=== PATIENT | female | born 1950 | race Caucasian/White ===

== ENCOUNTER 2019-04-02 16:44 | Emergency (ER) | payer MEDICARE, SELFPAY ==
[2019-04-02 16:45] VITALS: BP 145/85; PULSE 72; RESP 16; TEMP 36.7; O2SAT 98; BMI 28.8
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
[2019-04-02 17:53] VITALS: BP 141/73; PULSE 72; RESP 18
== END 2019-04-02 17:54 | disposition home or self-care (01) ==
LOC: ED 17:16
PROVIDERS: Emergency Provider Emergency Medicine; Family Provider Internal Medicine; PCP Internal Medicine
DX: S62.317A Displaced fracture of base of fifth metacarpal bone, left hand, initial encounter for closed fracture (principal); W22.8XXA Striking against or struck by other objects, initial encounter; Y93.89 Activity, other specified; Z87.891 Personal history of nicotine dependence
CPT/HCPCS: 29125; 73130; 99282

== ENCOUNTER → 2020-04-03 | Outpatient (CLI) | payer MEDICARE, SELFPAY ==
--- NOTE | 2020-04-03 | COLBX_PTH ---
PATIENT: HESHAM VILLANUEVA LOC: [facility] U#:[id number] AGE/SX: 69/F ROOM: RE04/03/[address]: Dr. Dalton Mason MD : 1950 BED: DIS: 04/03/2020 SPEC #: [id number] RECD: 04/03/20 15:03 STATUS: RENA RELuiz #: [id number] KIEL: 04/03/20 00:[address]: Dalton Mason DEPT: SURGICAL PATHOLOGY RECD BY: Serge Peterson ENTERED: 04/04/20 09:00 SP TYPE: COLON BX JOE DR: Dr. Lauren Corrales MD Tissues: COLON BIOPSY Procedures: Trichrome (control) Special Stain Group II Surgery Specimen Level IV HEADER OPERATION: Colonoscopy PRE-OP DIAGNOSIS: Z86.010, Z87.19 TISSUE SUBMITTED: Random colon biopsies MICROSCOPIC DIAGNOSIS Colon, random biopsy: Fragments of colonic mucosa, no pathologic diagnosis. See comment. SJ:francesca 04/07/20 COMMENT Trichrome stain with matched control is used in the evaluation and does not reveal any significant thickening of subepithelial collagen band. MICROSCOPIC DESCRIPTION Slides are reviewed. GROSS DESCRIPTION Received in fixative is one container labeled with the patient's name and designated random colon biopsy. The specimen consists of two irregular fragments of light juan soft tissue that in aggregate measure 1 x 0.5 x 0.1 cm. The specimen is totally submitted in one cassette. / AM:francesca 04/04/20 TC:4 CPT: 89357, 95152
== END | disposition home or self-care (01) ==
LOC: LABSPEC 15:31
PROVIDERS: PCP Internal Medicine; Referring Provider Surgery; Visit Provider Surgery
DX: Z86.010 Personal history of colon polyps (principal); Z87.19 Personal history of other diseases of the digestive system
CPT/HCPCS: 88305; 88313

== ENCOUNTER 2020-07-15 12:47 | Emergency (ER) | payer MEDICARE, SELFPAY ==
[2020-07-15] VITALS (8 sets, daily range): BP systolic 113–130; BP diastolic 56–76; PULSE 69–80; RESP 20–24; TEMP 36.4–39.2; O2SAT 95–99; BMI 30.1
--- NOTE | 2020-07-15 13:30 | RAD_ITS ---
STUDY: X-RAY CHEST REASON FOR EXAM: Female, 70 years old. SOB, COUGH TECHNIQUE: Single AP portable view of the chest. COMPARISON: None. FINDINGS: EKG electrodes are seen. Focal patchy infiltrates are seen in the mid and lower aspects of both lungs. There is no demonstrated pleural abnormality. Normal size heart. Normal mediastinum and cortez. Normal visualized pulmonary arteries. There is atherosclerotic calcification of the aortic arch with tortuosity. Normal visualized thoracic spine. Normal visualized ribs, clavicles, and shoulders. There is no demonstrated abnormality of the visualized soft tissue structures of the upper abdomen. RAD/Chest 1 View (Portable) IMPRESSION: Focal patchy infiltrates seen in the mid and lower aspects of both lungs. Electronically Signed: Kye Dobson, at 14:17 EST , Service support ,
--- NOTE | 2020-07-15 13:30 | EKG12_ITS ---
Test Reason : VOMMITING Blood Pressure : / mmHG Vent. Rate : 073 BPM Atrial Rate : 073 BPM P-R Int : 154 ms QRS Dur : 074 ms QT Int : 386 ms P-R-T Axes : 039 -02 065 degrees QTc Int : 425 ms Normal sinus rhythm Minimal voltage criteria for LVH, may be normal variant ST & T wave abnormality, consider anterior ischemia Abnormal ECG Confirmed by SHARI JAMISON, [place] ([id number]), script editor SOHAN BARLOW ([id number]) on 07/18/2020 8:53:48 A M Referred By: Micki Wilson Confirmed By:JENI MCCARTHY MD
[2020-07-15] MEDS: 0.9% Normal Saline 1,000 ML 999 ML IV (13:52)
[2020-07-15] MEDS: Acetaminophen 500 MG Tablet 1000 MG PO (13:52)
[2020-07-15 13:56] LABS: Absolute Lymphocyte Count 1.11 X10^3/uL (0.83-4.51); Absolute Neutrophil Count 7.7 X10^3/uL (2.0-7.7); Basophil# 0.01 X10^3/uL; Basophil% 0.1 % (0-1); Eosinophil# 0.01 X10^3/uL; Eosinophils% 0.1 % (0-5); Hematocrit 40.6 % (37-47); Hemoglobin 13.6 g/dL (12.0-15.0); Lymphocyte # 1.11 X10^3/ul (4.0); Lymphocyte % 11.6 % (19-41); Mean Corp Hgb Conc 33.5 g/dL (32-36); Mean Corpuscular Hgb 30.2 pg (27.0-32.0); Mean Platelet Vol. 12.2 fl (6.2-12.0); Monocyte# 0.64 X10^3/uL; Monocyte% 6.7 % (0-10); NRBC Flagged by Analyzer 0 % (0-5); Neutrophil # 7.73 X10^3/uL (2.7-7.7); Neutrophil % 80.9 % (47-70); Platelet Count 219 K/mm3 (150-450); RBC Distribution Width CV 13.3 % (11.6-14.6); RBC Distribution Width SD 43.8 fl (35.1-43.9); Red Blood Count 4.51 M/mm3 (4.2-5.4); White Blood Count 9.6 K/mm3 (4.4-11.0)
[2020-07-15 14:04] LABS: Partial Thromboplast Time 27.4 Seconds (24.1-36.2)
[2020-07-15 14:06] LABS: ALB/GLOB Ratio 0.7 RATIO (0.9-2.4); AST(SGOT) 21 U/L (15-37); Alanine Aminotransfer ALT/SGPT 19 U/L (13-56); Albumin, Serum 3.2 g/dL (3.2-5.0); Alkaline Phosphatase 135 U/L (45-117); Anion Gap 6 (5-15); BUN 14 mg/dL (7-18); Chloride 100 mmol/L (98-107); Creatinine, Serum 1.08 mg/dL (0.55-1.02); EST Glomerular Filtration Rate 53 mL/min (>60); Est Glom Filt Rate - Afr Amer 64 mL/min (>60); Estimated Creatinine Clearance 42.37 ml/min; Globulin 4.5 g/dL (2.2-4.2); Glucose 108 mg/dL (74-106); Potassium 3.2 mmol/L (3.5-5.1); Protein, Total 7.7 g/dL (6.4-8.2); Sodium Level 135 mmol/L (136-145)
[2020-07-15 14:23] LABS: Lactic Acid 2.2 mmol/L (0.4-1.9)
--- NOTE | 2020-07-15 14:23 | ED.RN ---
lactic 2.2 aware
--- NOTE | 2020-07-15 15:09 | ED.DCSUM_ITS ---
History of Present Illness Chief Complaint: Nausea/Vomiting/Diarrhea Narrative: Patient presenting for evaluation secondary to generalized illness. Patient states that over the course of about the last 5 days she has been dealing with nausea vomiting and diarrhea. It has been associated with mild cough and mild shortness of breath. Patient states that she has had multiple episodes of diarrhea per day, and around one episode of watery emesis per day. No blood in her vomit no blood in her stool. Patient does state that she has been dealing with mild shortness of breath, denies any history of heart disease smoking COPD or lung disease. She denies any sick contacts. Patient simply feels as if she is getting more dehydrated and having difficulty with getting around. Past Medical History - Allergies and Home Meds Allergies/Adverse Reactions: Allergies amoxicillin trihydrate [From Augmentin] Allergy (Verified 04/02/19 16:47) Rash potassium clavulanate [From Augmentin] Allergy (Verified 04/02/19 16:47) Rash codeine Adverse Reaction (Verified 04/02/19 16:47) Other propoxyphene HCl [From Darvon] Adverse Reaction (Verified 04/02/19 16:47) Other Primary Care Physician: Lauren Corrales MD [Primary Care Provider] - Prior records reviewed: Yes Past Medical History: - - Hypertension, hyperlipidemia Smoking Status: Never smoker Alcohol: None Drugs: None Review of Systems All systems negative except as indicated General: Reports: Fever Eyes: Denies: Visual changes - bilaterally, Diplopia ENT: Denies: Rhinorrhea, Sore throat Cardiovascular: Denies: Chest pain, Palpitations Respiratory: Reports: Dyspnea, Cough Gastrointestinal: Reports: Nausea, Vomiting, Diarrhea Genitourinary: Denies: Dysuria, Hematuria, Frequency Musculoskeletal: Denies: Back pain, Extremity Pain Skin: Denies: Rash, Wounds Neurological: Denies: Headache, Weakness, Numbness Physical Exam Vital Signs/Narrative: Vital Signs Temp Pulse Resp BP Pulse Ox 07/15/20 14:34 101.6 F H 07/15/20 14:33 101.2 F H 77 24 H 128/72 H 96 07/15/20 13:51 102.6 F H 75 21 H 113/66 96 07/15/20 12:48 98.3 F 75 20 H 122/69 H 99 Inital Vital Signs reviewed: Yes General: Well nourished, Well developed, No Acute Distress Head: Normocephalic, Atraumatic Eyes: Perrl, EOMI ENT: Moist mucous membranes, No rhinorrhea Neck: Supple, Nontender Cardiovascular: Regular rhythm, No murmurs, Tachycardia Respiratory: No distress, CTA bilaterally, Chest nontender Abdomen: Soft, Nontender, Nondistended, Normal bowel sounds Back: Nontender, Normal Inspection Extremities: Nontender, No edema Skin: Normal color, No rash, - - Skin is hot to the touch Neurological: Alert, Oriented x3, Cranial nerves II-XII grossly intact, Normal Strength, Normal Sensation Psychological: Normal affect, Normal Mood Diagnostic/Tx/Re-eval Clinical Impression(s) from Imaging Studies Chest X-Ray 07/15/20 13:30 IMPRESSION: Focal patchy infiltrates seen in the mid and lower aspects of both lungs. Electronically Signed: Kye Bronson, at 14:17 EST , Service support , Laboratory Data 07/15/20 07/15/20 07/15/20 13:21 13:21 13:21 WBC 9.6 RBC 4.51 Hgb 13.6 Hct 40.6 MCV 90.0 MCH 30.2 MCHC 33.5 RDW Std Deviation 43.8 RDW Coeff of Nii 13.3 Plt Count 219 MPV 12.2 H Immature Gran % (Auto) 0.600 Neut % (Auto) 80.9 H Lymph % (Auto) 11.6 L Hodgeman % (Auto) 6.7 Eos % (Auto) 0.1 Baso % (Auto) 0.1 Absolute Neuts (auto) 7.7 Absolute Lymphs (auto) 1.11 Nucleated RBC % 0 PT 13.0 INR 1.0 APTT 27.4 Sodium 135 L Potassium 3.2 L Chloride 100 Carbon Dioxide 29.0 Anion Gap 6 BUN 14 Creatinine 1.08 H Estim Creat Clear Calc 42.37 Est GFR (MDRD) Af Amer 64 Est GFR (MDRD) Non-Af 53 L BUN/Creatinine Ratio 13.0 Glucose 108 H Lactic Acid Calcium 9.0 Total Bilirubin 0.50 AST 21 ALT 19 Alkaline Phosphatase 135 H C-React Prot Ext Range 160.00 H Total Protein 7.7 Albumin 3.2 Globulin 4.5 H Albumin/Globulin Ratio 0.7 L 07/15/20 13:21 WBC RBC Hgb Hct MCV MCH MCHC RDW Std Deviation RDW Coeff of Nii Plt Count MPV Immature Gran % (Auto) Neut % (Auto) Lymph % (Auto) Hodgeman % (Auto) Eos % (Auto) Baso % (Auto) Absolute Neuts (auto) Absolute Lymphs (auto) Nucleated RBC % PT INR APTT Sodium Potassium Chloride Carbon Dioxide Anion Gap BUN Creatinine Estim Creat Clear Calc Est GFR (MDRD) Af Amer Est GFR (MDRD) Non-Af BUN/Creatinine Ratio Glucose Lactic Acid 2.2 H* Calcium Total Bilirubin AST ALT Alkaline Phosphatase C-React Prot Ext Range Total Protein Albumin Globulin Albumin/Globulin Ratio - Medical Decision Making Patient presented with nausea vomiting fever and a cough. There was concern for the possibility of coronavirus. Patient was given fluids as clinically she does appear dehydrated. Patient's lab work does show some lymphocyte suppression no leukocytosis. Chemistry did not demonstrate significant evidence of renal dysfunction, she did have some mild hypokalemia patient was replaced orally. Chest x-ray shows bilateral infiltrates by my personal review as well as radiology review. Patient's fever improved, heart rate improved. Patient had a ambulatory pulse ox performed, and does not have hypoxia. Patient's antigen testing was found to be negative, so a PCR test was sent on the patient to confirm her coronavirus status. Patient at this point does not have hypoxia, she only had mild hypokalemia, she does have some comorbid conditions but is not requiring oxygen and actually would meet criteria for monoclonal antibody infusions showed her PCR test come back positive. I did give the patient some additional fluids while in the emergency department. At this point I feel the patient either has gastroenteritis, and can be discharged or has coronavirus with 5 days of infection and can be discharged with outpatient treatment with monoclonal antibodies. Oncoming physician will follow up on the patient's coronavirus PCR test, and disposition the patient home with or without to the monoclonal antibody treatment. Patient will be sent home with Zofran to ensure hydration. ED Disposition - Plan for ED Patient: Disposition: Home or Assisted Living Diagnosis: Viral illness Instructions: ED Viral Syndrome (Adult), Coronavirus Disease 2019 (COVID-19): Overview Prescriptions: Ondansetron [Zofran Odt] 4 mg PO Q8H PRN PRN #10 tab PRN Reason: Nausea Prescription Printed Referrals: Lauren Corrales MD [Primary Care Provider] - 2 Days
[2020-07-15 17:43] LABS: Reflex Lactate? Y
== END 2020-07-15 18:41 | disposition home or self-care (01) ==
PROVIDERS: Emergency Provider Emergency Medicine; PCP Internal Medicine
DX: U07.1 COVID-19 (principal); E87.6 Hypokalemia; R06.02 Shortness of breath; I10 Essential (primary) hypertension; E78.5 Hyperlipidemia, unspecified; Z88.0 Allergy status to penicillin; Z88.1 Allergy status to other antibiotic agents; Z88.5 Allergy status to narcotic agent; Z79.899 Other long term (current) drug therapy
CPT/HCPCS: 71045; 80053; 83605; 85025; 85610; 85730; 86140; 87040; 87149; 87426; 87635; 93005; 96360; 96361; 99284; J7030; A4216; U0002

== ENCOUNTER 2020-07-17 12:55 | Outpatient (CLI) | payer MEDICARE, SELFPAY ==
[2020-07-17 13:08] VITALS: BP 130/58; PULSE 65; RESP 24; TEMP 36.8; O2SAT 98; BMI 29.6
[2020-07-17 14:00] VITALS: BP 120/63; PULSE 60; RESP 18; TEMP 36.7; O2SAT 100
[2020-07-17 14:30] VITALS: BP 126/57; PULSE 57; RESP 18; TEMP 36.6; O2SAT 99
[2020-07-17 14:57] VITALS: BP 132/59; PULSE 58; RESP 18; TEMP 36.7; O2SAT 100
[2020-07-17 15:27] VITALS: BP 123/57; PULSE 58; RESP 18; TEMP 36.6; O2SAT 100
[2020-07-17 15:57] VITALS: BP 113/70; PULSE 56; RESP 18; TEMP 36.9; O2SAT 97
== END 2020-07-17 16:11 | disposition home or self-care (01) ==
LOC: MS2OUT 12:55
PROVIDERS: PCP Internal Medicine; Referring Provider Nurse Practitioner Acute Care; Visit Provider Nurse Practitioner Acute Care
DX: U07.1 COVID-19 (principal)
CPT/HCPCS: 96365; J7050; M0239; Q0239

== ENCOUNTER → 2020-08-20 06:46 | Outpatient (CLI) | payer MEDICARE, SELFPAY ==
--- NOTE | 2020-08-20 12:56 | STRESSREP ---
Stress Test Report Exercise myocardial perfusion stress test. 70-year-old lady with a history of shortness of breath. Resting EKG. Resting KG demonstrates normal sinus rhythm with a rate of 71 bpm normal intervals are noted resting blood pressure 136/68 mmHg. The patient exercised according to regular Domo protocol for total duration of 4 minutes. The maximum heart rate attained was 116 bpm which was 78% of max impacted heart rate the maximum workload was 5.8 metabolic equivalents. At rest there were no ST or T wave changes noted suggest ischemia at peak exercise upsloping ST changes were noted with no meet the criteria for ischemia. The test was terminated due to dyspnea. The resting blood pressure was 1 and 36/68 with a peak blood pressure 164/70 mmHg. Myocardial perfusion protocol. 11.9 mCi of technetium 99m sestamibi was injected at rest. The patient exercised according to regular Domo protocol for 4 minutes and 5 seconds at peak exercise 34.3 mCi of technetium 99m sestamibi was injected stress images were obtained stress and rest images were reconstructed in comparing the short axis vertical and horizontal long axis. Gated images were also obtained per Perfusion SPECT analysis: Review of the stress images demonstrate normal uptake of tracer noted in all areas of the myocardium the resting images similarly demonstrate normal uptake of tracer noted in all areas of the myocardium. No areas of reversibility are noted suggest ischemia no previous infarct is noted. Gated SPECT analysis: The gated ejection fraction is noted to be over 70%. Conclusion: Normal exercise myocardial perfusion stress test at a moderate workload. Preserved ejection fraction.
== END ==
PROVIDERS: PCP Internal Medicine; Referring Provider Internal Medicine; Visit Provider Internal Medicine
DX: R06.02 Shortness of breath (principal)
CPT/HCPCS: 78452; 93017; A9500; A4216

== ENCOUNTER 2021-07-02 19:39 | Emergency (ER) | payer MEDICARE, SELFPAY ==
[2021-07-02 19:40] VITALS: BP 161/72; PULSE 82; RESP 16; TEMP 36.1; O2SAT 95; BMI 31.5
--- NOTE | 2021-07-02 20:09 | RAD_ITS ---
STUDY: X-RAY - SOFT TISSUE NECK REASON FOR EXAM: Female, 70 years old. Throat irritation. TECHNIQUE: 2 view(s) of the neck were obtained. COMPARISON: None. FINDINGS: Normal visualized nasopharynx, oropharynx, hypopharynx. Normal epiglottis. Normal visualized subglottic tracheal air column. Normal prevertebral soft tissue structures. Minimal degenerative changes of the lower cervical spine. The soft tissue structures are unremarkable. RAD/Neck for Soft Tissue IMPRESSION: Normal x-ray soft tissue neck. Electronically Signed: Jared Saavedra DO at 20:55 EST Tel [phone], Service support ,
--- NOTE | 2021-07-02 21:09 | EDS_ITS ---
HPI HPI - GI History of Present Illness Chief Complaint: Foreign Body Narrative Narrative: 70-year-old female presenting with irritation to the throat. She states she choked on on some turkey while eating Thanksgiving dinner. She was initially not able to swallow but then vomited into the site but she is been able to swallow since. She continues to have irritation. She is not drooling. She speaking in full sentences. No trouble breathing. PFSH PFSH Medical History Hyperthyroidism Ulcerative colitis Home Medications latanoprost 1 drp EACH EYE DAILY 01/07/16 [History Last Taken 01/07/16] levothyroxine 175 mcg PO SUTUWETHFRSA 01/07/16 [History Last Taken 01/07/16] loperamide 2 mg PO Q2H PRN PRN 01/07/16 [History Last Taken 01/07/16] omeprazole 20 mg PO DAILY 01/07/16 [History Last Taken 01/07/16] paroxetine HCl 10 mg PO DAILY 01/07/16 [History Last Taken 01/07/16] propranolol 120 mg PO DAILY 01/07/16 [History Last Taken 01/07/16] levothyroxine 150 mcg PO MO 07/17/20 [History Last Taken Unknown] montelukast 10 mg PO DAILY 07/17/20 [History Last Taken Unknown] prednisone 5 mg PO DAILY 07/17/20 [History Last Taken Unknown] sulfasalazine 500 mg PO BID 07/17/20 [History Last Taken Unknown] timolol 5 ml OP BID 07/17/20 [History Last Taken Unknown] Allergy/AdvReac Type Severity Reaction Status Date / Time amoxicillin trihydrate Allergy Rash Verified 07/02/21 19:40 [From Augmentin] potassium clavulanate Allergy Rash Verified 07/02/21 19:40 [From Augmentin] codeine AdvReac Other Verified 07/02/21 19:40 propoxyphene HCl AdvReac Other Verified 07/02/21 19:40 [From Darvon] Social History Smoking Status: Never smoker ROS ROS ED Constitutional Constitutional ED: Denies chills, fever(s) or subjective ENT ENT ED: Reports other Details: Throat irritation ; Denies rhinorrhea or sore throat Cardiovascular Cardiovascular: Denies chest pain or palpitations Respiratory/Chest Respiratory/Chest: Denies cough or dyspnea Gastrointestinal Gastrointestinal: Denies abdominal pain, nausea or vomiting Genitourinary Genitourinary ED: Denies dysuria or hematuria Musculoskeletal Musculoskeletal: Denies arthralgias or myalgias Integumentary Denies Abrasions or rash Neurologic Neurologic: Denies headache(s) or paresthesias EXAM Physical Exam Const Vital Signs: 07/02/21 19:40 Temperature 97.0 F L Temperature Source Temporal Pulse Rate 82 Respiratory Rate 16 Blood Pressure 161/72 H Blood Pressure Mean 101 Pulse Ox 95 Oxygen Delivery Method Room Air Positive well nourished General Appearance ED: NAD; Negative for pallor HEENT Reports moist mucous membranes normocephalic and atraumatic Eyes PERRL and EOMs intact bilaterally Neck no lymphadenopathy Neck Narrative: No stridor. Patient tolerating secretions. Speaking full sentences. Resp normal respiratory effort and clear to auscultation bilaterally Cardio regular rate and regular rhythm Neuro CN's II-XII intact bilaterally Sensorium / Orientation: alert, oriented to person, oriented to place and oriented to time Psych mental status grossly normal and thought process normal Skin General Skin Exam: Negative for jaundice or pallor MDM MDM MDM Narrative Medical decision making narrative: Patient presenting with irritation to the throat. She is tolerating her own secretions and does not have any stridor. Vital signs are stable she is afebrile. I counseled the patient that likely this is irritation however she is very insistent that we do an x-ray to make sure there is nothing in there. I did program counselor her that likely we would see nothing and since she is tolerating secretions this would likely not change her disposition. I did obtain an x-ray at her request and on my interpretation of the soft tissue neck there are no acute findings. Patient was given Dr. Amaya for follow-up. Impression: 1. Globus hystericus Radiography Diagnostic Testing: Clinical Impression(s) from Imaging Studies Soft Tissue Neck X-Ray 07/02/21 20:09 IMPRESSION: Normal x-ray soft tissue neck. Electronically Signed: Jared Saavedra DO at 20:55 EST Tel [phone], Service support , Discharge Plan Triage Chief Complaint: Foreign Body ED Provider: Burak Gomes Dx/Rx/DC Orders Instructions: ED Pharyngeal Foreign Body, Removed Prescriptions: No Action omeprazole 20 MG capsule 20 mg PO DAILY RF: 0 paroxetine HCl 12.5 MG tablet 10 mg PO DAILY RF: 0 latanoprost 1 DROP bottle 1 drp Each Eye DAILY RF: 0 levothyroxine 175 MCG tablet 175 mcg PO SUTUWETHFRSA RF: 0 loperamide 2 MG capsule 2 mg PO Q2H PRN PRN (Reason: Diarrhea) RF: 0 propranolol 120 MG capsule,extended release 24 hr 120 mg PO DAILY RF: 0 sulfasalazine 500 MG tablet 500 mg PO BID RF: 0 prednisone 5 MG tablet 5 mg PO DAILY RF: 0 timolol 5 ML drops 5 ml OP BID RF: 0 levothyroxine 150 MCG tablet 150 mcg PO MO RF: 0 montelukast 10 MG tablet 10 mg PO DAILY RF: 0 Primary Care Provider: Lauren Corrales Referrals: Lauren Corrales MD [Primary Care Provider] - Friend,DO Nik [STAFF PHYSICIAN] - As soon as possible Disposition Disposition: Home, Self Care
[2021-07-02 21:14] VITALS: BP 153/82; PULSE 74; RESP 18; O2SAT 96
== END 2021-07-02 21:14 | disposition home or self-care (01) ==
PROVIDERS: Emergency Provider Student in an Organized Health Care Education/Training Program; PCP Internal Medicine
DX: F45.8 Other somatoform disorders (principal); E05.90 Thyrotoxicosis, unspecified without thyrotoxic crisis or storm; Z79.52 Long term (current) use of systemic steroids
CPT/HCPCS: 70360; 99282

== ENCOUNTER 2021-08-04 11:20 | Day surgery (SDC) | payer MEDICARE, SELFPAY ==
[2021-08-04] VITALS (7 sets, daily range): BP systolic 106–144; BP diastolic 55–79; PULSE 62–77; RESP 16; TEMP 35.9–36.6; O2SAT 94–100
[2021-08-04] MEDS: Lactated Ringers 1,000 ML 15 ML IV (11:52)
--- NOTE | 2021-08-04 12:30 | EGD_PTH ---
PATIENT: HESHAM VILLANUEVA LOC: [facility] U#:[id number] AGE/SX: 71/F ROOM: RE08/04/[address]: Dr. Nik Amaya DO : 1950 BED: DIS: 08/04/2021 SPEC #: [id number] RECD: 08/04/21 15:01 STATUS: RENA RELuiz #: [id number] KIEL: 08/04/21 12:[address]: Nik Amaya DEPT: SURGICAL PATHOLOGY RECD BY: Tammy Ramos ENTERED: 08/05/21 12:14 SP TYPE: EGD BIOPSY OT DR: Dr. Lauren Corrales MD Tissues: Esophagus, NOS Procedures: Special Stain Group II Surgery Specimen Level IV Alcian Blue/PAS (control) HEADER OPERATION: [place] [place] DIAGNOSIS: Dysphagia TISSUE SUBMITTED: Random esophagus biopsy MICROSCOPIC DIAGNOSIS Esophagus, random biopsy: Fragments of gastroesophageal mucosa with chronic inflammation. Intestinal metaplasia (goblet cell metaplasia) not identified. Additional fragments of squamous epithelium with extensive hyperkeratosis. See comment. LAURIE:francesca 08/06/2021 COMMENT Alcian blue/PAS stain with matched control is used in the evaluation of the specimen. Correlation with clinical , endoscopic findings and appropriate follow up necessary. MICROSCOPIC DESCRIPTION Slides are reviewed. GROSS DESCRIPTION Received in fixative is one container labeled with the patient's name and designated random esophageal biopsy. The specimen consists of multiple irregular fragments of light juan soft tissue that in aggregate measure 1 x 0.4 x 0.1 cm. The specimen is totally submitted in one cassette. / LAURIE:francesca 08/05/21 TC:3 CPT: 54216, 75442
--- NOTE | 2021-08-04 13:07 | PCM.HP.BLA ---
History and Physical Date of Admission: 08/04/21 71 F who presents to the office today for 07/02/21 presented to [facility] ED for irritation to the throat. She choked during Thanksgiving dinner and was then unable to swallow, then vomited and was then able to swallow. She presented due to irritation with no apparent distress. XRay of neck performed without acute findings. In the last few days the irritation has gotten better. She has never had difficulty with swallowing or choking previously. Continues to eat a soft diet, she feels a little worried. She does have a history of Ulcerative Colitis and gets routine colonoscopy for this. She is currently taking 5mg prednisone QD and sulfasalazine two tablets once a day, no folic acid. In the mornings she has difficulty with urgent diarrhea episodes 3times in the AM. The rest of the day is normal to her. Following the choking episode she felt she was having difficulty with a flare and has been managing this with Immodium. She will consider transferring care to this office at this time, but would like to continue with her current PCP for this management. Last colonoscopy performed in the last two years with a small amount of inflammation in her colon. ROS Const Constitutional: No anorexia, fatigue, fever(s), weight change or sleep problems Eyes Eyes: No change in vision ENT ENT: No abnormal hearing, difficulty swallowing, mouth lesions, tongue swelling or throat swelling Resp Respiratory: No cough or shortness of breath Cardio Cardiology: No chest pain at rest, chest pain with exertion, shortness of breath or dyspnea on exertion Gastro GI: No difficulty swallowing Genitourinary-Female: No difficulty urinating or burning urination Musc Musculoskeletal: No joint pain, joint swelling, muscle weakness or decreased muscle mass Skin Skin: No hair loss in leg, yellowing of the eye, itchy eyes, rash, skin ulcer or skin swelling Neuro Neurology: No abnormal hearing, abnormal movements, confusion, unsteady gait/balance or memory loss Psych Psychiatric: No anxiety, No confusion and No memory loss Endo Endocrine: No fatigue or weight change Aller/Imm Allergy/Immunologic: No itchy eyes, throat swelling or tongue swelling Max/Lymp Hematologic/Lymphatic: No easy bleeding, easy bruising or enlarged lymph nodes Exam Const General: cooperative and comfortable Nutritional Appearance: average body habitus and well nourished HENMT Head: normal to inspection Ears: hearing grossly normal bilaterally Nose: external nose normal Face and sinus: normal facial exam Mouth: oral mucosae normal Throat: posterior oropharynx normal Eyes General: appearance normal, both eyes and all related structures Neck Neck: normal visual inspection Chest Chest palpation & inspection: normal inspection of the chest and normal palpation of entire chest wall Resp Effort & Inspection: normal respiratory effort Auscultation: Bilateral: Clear to Auscultation Cardio Palpation: normal PMI Rate: regular rate Rhythm: regular rhythm GI Inspection: normal to inspection Auscultation: normal bowel sounds Percussion: normal to percussion Palpation: no hepatosplenomegaly Skin General: no rashes or lesions noted Neuro General: patient alert Extrem General: normal to inspection Psych Affect: normal affect Quality Reporting Tobacco Screening ([facility] 138) Smoking Status: Never smoker Assessment and Plan Assessment and Plan (1) Dysphagia: Status: Acute Plan - Dr. Zaragoza Friend, DO: The differential for her would be erosive esophagitis causing esophageal ring, eosinophilic diagnosed, esophageal web. Also the diagnosis would be an esophageal diverticulum and hiatal hernia. She will undergo upper endoscopy for evaluation of the GI tract. I have re-examined the patient. There are no clinical changes since date of exam.
--- NOTE | 2021-08-04 13:46 | OP.EGD_ITS ---
Patient Name: Nikki Bullard Procedure Date: 08/04/2021 1:00 PM Date of : 1950 Age: 71 Procedure: Upper GI endoscopy Indications: Dysphagia Providers: Nik Amaya DO Medicines: See the Anesthesia note for documentation of the administered medications Patient Profile: This is a 71 year old female. Refer to note in patient chart for documentation of history and physical. Patient has symptoms. Complications: No immediate complications. Procedure: Pre-Anesthesia Assessment: - Prior to the procedure, a History and Physical was performed, and patient medications and allergies were reviewed. The patient is competent. The risks and benefits of the procedure and the sedation options and risks were discussed with the patient. All questions were answered and informed consent was obtained. Patient identification and proposed procedure were verified by the physician in the pre-procedure area. Mental Status Examination: alert and oriented. Airway Examination: normal oropharyngeal airway and neck mobility. Respiratory Examination: clear to auscultation. CV Examination: normal. Prophylactic Antibiotics: The patient does not require prophylactic antibiotics. Prior Anticoagulants: The patient has taken no previous anticoagulant or antiplatelet agents. ASA Grade Assessment: II - A patient with mild systemic disease. After reviewing the risks and benefits, the patient was deemed in satisfactory condition to undergo the procedure. The anesthesia plan was to use moderate sedation / analgesia (conscious sedation). Immediately prior to administration of medications, the patient was re-assessed for adequacy to receive sedatives. The heart rate, respiratory rate, oxygen saturations, blood pressure, adequacy of pulmonary ventilation, and response to care were monitored throughout the procedure. The physical status of the patient was re-assessed after the procedure. After obtaining informed consent, the endoscope was passed under direct vision. Throughout the procedure, the patient's blood pressure, pulse, and oxygen saturations were monitored continuously. The Endoscope was introduced through the mouth, and advanced to the second part of duodenum. The upper GI endoscopy was accomplished without difficulty. The patient tolerated the procedure well. Moderate Sedation: Moderate (conscious) sedation was administered by the endoscopy nurse and supervised by the endoscopist. The patient's oxygen saturation, heart rate, blood pressure and response to care were monitored. Total physician intraservice time was 15 minutes. Scope In: 1:15:44 PM Scope Out: 1:27:43 PM Total Procedure Duration Time 0 hours 11 minutes 59 seconds Findings: LA Grade C (one or more mucosal breaks continuous between tops of 2 or more mucosal folds, less than 75% circumference) esophagitis with no bleeding was found 34 to 40 cm from the incisors. Biopsies were taken with a cold forceps for histology. Verification of patient identification for the specimen was done. Estimated blood loss was minimal. A non-bleeding diverticulum with a small opening and no stigmata of recent bleeding was found at the cricopharyngeus. Multiple 5 mm sessile polyps with no bleeding and no stigmata of recent bleeding were found in the gastric body. A single 5 mm no bleeding angiodysplastic lesion was found in the gastric body. The second portion of the duodenum was normal. One benign-appearing, intrinsic stenosis was found 22 to 24 cm from the incisors. This stenosis was moderately severe and measured 2 mm (inner diameter) x 2 cm (in length). The stenosis was traversed. A guidewire was placed and the scope was withdrawn. Dilation was performed with a Savary dilator with no resistance at 54 Fr. The dilation site was examined following endoscope reinsertion and showed moderate improvement in luminal narrowing. Estimated blood loss was minimal. Impression: - LA Grade C chronic esophagitis. Biopsied. 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 - Multiple gastric polyps. - A single non-bleeding angiodysplastic lesion in the stomach. - Normal second portion of the duodenum. - Benign-appearing esophageal stenosis. Dilated. Recommendation: - Discharge patient to home. - Resume previous diet. - Use sucralfate suspension 1 gram PO BID for 3 weeks. - Continue present medications. Procedure Code(s): --- Professional --- 35686, Esophagogastroduodenoscopy, flexible, transoral; with insertion of guide wire followed by passage of dilator(s) through esophagus over guide wire 27988, 59, Esophagogastroduodenoscopy, flexible, transoral; with biopsy, single or multiple 11458, 59, Moderate sedation services provided by the same physician or other qualified health personal care assistant performing the diagnostic or therapeutic service that the sedation supports, requiring the presence of an independent trained observer to assist in the monitoring of the patient's level of consciousness and physiological status; initial 15 minutes of intraservice time, patient age 5 years or older CPT copyright 2017 [employer]. All rights reserved. The codes documented in this report are preliminary and upon garden machinery mechanic review may be revised to meet current compliance requirements. Nik Amaya DO 08/04/2021 1:46:17 PM This report has been signed electronically. Number of Addenda: 1 Note Initiated On: 08/04/2021 1:00 PM Addendum Number: 1 Addendum Date: 04/14/2022 7:23:42 AM MAC was used instead of moderate sedation for the patient. Nik Amaya DO 04/14/2022 7:23:49 AM This report has been signed electronically.
--- NOTE | 2021-08-04 13:47 | OP.CCLET_ITS ---
04/14/2022 Lauren Corrales [address] [place] [address] Re : Upper GI endoscopy procedure for Nkiki Bullard Dear Dr. Corrales This procedure was performed on Wednesday, August 04, 2021. My impressions and recommendations are as follows: Impressions : - LA Grade C chronic esophagitis. Biopsied. 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 - Multiple gastric polyps. - A single non-bleeding angiodysplastic lesion in the stomach. - Normal second portion of the duodenum. - Benign-appearing esophageal stenosis. Dilated. Recommendations : - Discharge patient to home. - Resume previous diet. - Use sucralfate suspension 1 gram PO BID for 3 weeks. - Continue present medications. My findings are described in the full procedure note, which is enclosed. If I can be of further assistance, please feel free to contact me at . Sincerely, Nik Amaya, 08/04/2021 1:46:17 PM This report has been signed electronically.
== END 2021-08-04 15:15 | disposition home or self-care (01) ==
LOC: EN 11:24 → AC 11:27
PROVIDERS: PCP Internal Medicine; Referring Provider Internal Medicine; Visit Provider Internal Medicine Gastroenterology
PROC: 0DJ08ZZ Inspection of Upper Intestinal Tract, Via Natural or Artificial Opening Endoscopic (ICD-10-PCS; CPT 43235; principal; 2021-08-04 12:25)
DX: K21.00 Gastro-esophageal reflux disease with esophagitis, without bleeding (principal); K31.7 Polyp of stomach and duodenum; K31.819 Angiodysplasia of stomach and duodenum without bleeding; K22.2 Esophageal obstruction; K50.90 Crohn's disease, unspecified, without complications; Q39.6 Congenital diverticulum of esophagus; I10 Essential (primary) hypertension; E05.90 Thyrotoxicosis, unspecified without thyrotoxic crisis or storm; M19.90 Unspecified osteoarthritis, unspecified site; Z79.899 Other long term (current) drug therapy; Z87.891 Personal history of nicotine dependence
CPT/HCPCS: 43239; 43248; 88305; 88313; J7120; C1769; J2405

== ENCOUNTER → 2022-04-23 | Outpatient (CLI) | payer MEDICARE, SELFPAY ==
--- NOTE | 2022-04-23 13:44 | STRESSREP ---
Stress Test Report Pharmacologic myocardial perfusion stress test. 71-year-old lady with a history of dyspnea on exertion. Stress protocol: Resting EKG demonstrates sinus rhythm with a rate of 67 bpm normal intervals are noted resting blood pressure is 122/80 mmHg. The patient initially exercised according to the regular Domo protocol for total duration of 3 minutes and 49 seconds attaining 105% beats per minute and 71% of max impacted heart rate due to inability to attain target heart rate the test was terminated and changed to a pharmacologic stress test. 0.4 mg of regadenoson was infused per usual protocol. There were no ST or T wave changes noted to suggest abnormal flow reserve. The final blood pressure was 114/70 mmHg. Myocardial perfusion protocol. 11.9 mCi of technetium 99m sestamibi was injected at rest. 0.4 mg of regadenoson was infused per usual protocol. At peak infusion 33.3 mCi of technetium 99m sestamibi was injected stress images were obtained stress and rest images were reconstructed in comparing the short axis vertical long and horizontal long axis. Gated images were also obtained Perfusion SPECT analysis: Review of the stress images demonstrate normal uptake of tracer noted in all areas of the myocardium. The resting images similarly demonstrated normal uptake of tracer noted in all areas of the myocardium. No areas of reversibility are noted to suggest ischemia and no previous infarct is noted. Gated SPECT analysis: The gated ejection fraction is noted to be 85%. Conclusion: Normal pharmacologic myocardial perfusion stress test. Preserved ejection fraction.
== END | disposition home or self-care (01) ==
PROVIDERS: PCP Internal Medicine; Referring Provider Internal Medicine Cardiovascular Disease; Visit Provider Internal Medicine Cardiovascular Disease
DX: R06.09 Other forms of dyspnea (principal)
CPT/HCPCS: 78452; 93017; A9500; A4216; J2785

== ENCOUNTER → 2022-04-26 | Outpatient (CLI) | payer MEDICARE, SELFPAY ==
[2022-04-26 13:18] LABS: Anion Gap 10 (5-15); BUN 19 mg/dL (7-18); BUN/Creat Ratio 20.4 RATIO (10-20); Calcium,Total 8.9 mg/dL (8.5-10.1); Chloride 104 mmol/L (98-107); Creatinine, Serum 0.93 mg/dL (0.55-1.02); EST Glomerular Filtration Rate 63 mL/min (>60); Est Glom Filt Rate - Afr Amer 76 mL/min (>60); Glucose 103 mg/dL (74-106); Potassium 3.1 mmol/L (3.5-5.1); Sodium Level 140 mmol/L (136-145)
== END | disposition home or self-care (01) ==
LOC: LAB 11:32
PROVIDERS: PCP Internal Medicine; Visit Provider Physician Assistant Medical
DX: R06.02 Shortness of breath (principal)
CPT/HCPCS: 36415; 80048

== ENCOUNTER → 2023-02-14 | Outpatient (CLI) | payer MEDICARE, SELFPAY ==
--- NOTE | 2023-02-14 17:07 | MRI_ITS ---
STUDY: MRI BRAIN WITH AND WITHOUT CONTRAST REASON FOR EXAM: Female, 72 years old. LEFT PROPTOSIS -- ATTN ORBITS TECHNIQUE: Standardized multiplanar fat and water weighted pulse sequences were obtained. IV 15ML CLARISCAN was administered for the contrast portion of the examination. Thin slice coronal T1 fat-sat and standard axial T1 nonfat sat postcontrast enhanced images are obtained. COMPARISON: Prior comparison studies are not available for review at this time. FINDINGS: Normal size of the ventricles and extra-axial spaces for the patient''s age. Several scattered foci of subcortical and deep white matter increased T2 and FLAIR signal right, greater than left bilateral periventricular white matter of the frontal lobes most commonly representing chronic small vessel ischemic changes. There is no evidence for recent intracranial ischemia or other cause of cytotoxic edema on diffusion weighted imaging (DWI). Normal T2* images of the brain without demonstrated susceptibility artifact. There is no demonstrated hemosiderin stain. There is a cavum septum pellucidum; variant anatomy. Normal bilateral basal ganglia. Normal thalami. There is no extra-axial fluid accumulation. Normal flow voids within the major intracranial circulation suggesting patency by spin echo criteria. Normal venous enhancement. There is no enhancing intra-axial or extra-axial abnormality. Normal sella turcica, pituitary gland, infundibular stalk, optic chiasm and hypothalamus. Normal tectal plate and pineal gland. Normal midbrain, jessica and medulla. Normal cerebellum. Normal basal cisterns. Normal bilateral temporal bones. Normal bilateral internal auditory canals. Frontal and maxillary sinuses are both completely opacified with intermediate to low T1 and T2 signal showing peripheral rim of increased T2 signal and enhancement. Central restricted diffusion. Extending from the inferior left frontal sinus is a 1.6 x 1.9 x 1.5 cm peripherally rim-enhancing lesion, isodense to the paranasal sinus opacities. This either erodes through bone or displaces bone and compresses the medial rectus and superior oblique muscles. Adjacent soft tissue show no inflammatory changes. Findings favored to represent mucoceles however relatively moderate rim enhancement suspicious for possible mucopyocele. Less likely allergic fungal sinusitis is considered. There is no evidence of intracranial invasion. Sphenoid sinuses are clear. Minimal involvement of the ethmoid air cells. Right lens appears to be surgically absent. Normal calvarium and skull base. Normal visualized upper cervical spine. MRI/Orbit Face Neck W/WO Contrast IMPRESSION: 1. No acute intracranial pathology. 2. Mild chronic small vessel ischemic changes. 3. Complete opacification of the maxillary and sphenoid sinuses likely representing mucocele formation versus less likely allergic fungal sinusitis or mucopyocele formation. Extension into the superior medial left orbit with mass effect on the superior oblique and medial rectus muscles. No adjacent inflammatory changes. ENT consultation recommended. Electronically Signed: Nelson Goyal DO at 20:30 EDT ,
[2023-02-14 17:51] LABS: CREATININE FINGERSTICK < 0.9 mg/dL (0.55-1.02); EGFR FINGERSTICK > 60.0000 mL/min (>60)
== END | disposition home or self-care (01) ==
LOC: MRI 16:52
PROVIDERS: PCP Internal Medicine; Referring Provider Ophthalmology; Visit Provider Ophthalmology
DX: H05.20 Unspecified exophthalmos (principal)
CPT/HCPCS: 70543; A9575

== ENCOUNTER 2024-03-27 14:34 | Emergency (ER) | payer MEDICARE, SELFPAY ==
[2024-03-27 14:35] VITALS: BP 160/98; PULSE 92; RESP 16; TEMP 36.8; O2SAT 98; BMI 23.6
[2024-03-27 15:33] VITALS: BP 129/114; PULSE 67; RESP 18; O2SAT 98
--- NOTE | 2024-03-27 15:52 | EX.ED.DYSGE1 ---
HPI History of Present Illness Chief Complaint: Allergic Reaction Informant: patient Onset/Context/Timing Onset: Hours (1) Context: Sudden Onset Timing: Continuous Quality: Burning Location: Left ear and at the left anterior neck Worsened by: Nothing Relieved by: Nothing Narrative Narrative: Patient presents with bee sting to her left ear and anterior neck. Patient states she was stung twice but did not see the insect that stung her. Patient noted some redness and swelling to her left ear and left anterior neck. Patient denies any difficulty breathing or difficulty swallowing. 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 Patient states she has an EpiPen but did not use it. Patient has not taken anything prior to arrival. Patient denies any chest pain or palpitations. [facility] Medical History (Updated 03/27/24 @ 15:[address] Matias Prater, ) Parkinson disease Mild pulmonary arterial systolic hypertension (HFpEF) heart failure with preserved ejection fraction Obesity Hypothyroidism Essential hypertension Post-menopausal History of steroid therapy Thyroid disease Arthritis Back pain History of Crohn's disease Ulcerative colitis Gastric reflux Former smoker Asthma Shortness of breath on exertion History of pain when walking History of stress test Hx of retained foreign body fully removed History of cataract Dysphagia Hyperthyroidism Home Medications ?Medication ?Instructions ?Recorded ?Last Taken ?Type latanoprost 0.005 % eye drops 1 drp DAILY 01/07/16 01/07/16 History loperamide 2 mg capsule (Imodium 2 mg PO Q2H PRN PRN Diarrhea 01/07/16 01/07/16 History A-D) montelukast 10 mg tablet 10 mg PO DAILY 07/17/20 Unknown History prednisone 5 mg tablet 5 mg PO DAILY 07/17/20 08/04/21 05:45 History sulfasalazine 500 mg tablet 1,000 mg PO DAILY 07/17/20 Unknown History timolol 0.5 % eye drops 5 ml OP BID 07/17/20 Unknown History albuterol sulfate 90 mcg/actuation 1 inh inhalation Q6H PRN ASTHMA 07/29/21 Unknown History aerosol inhaler (ProAir HFA) brimonidine 0.2 % eye drops 1 drp RIGHT EYE BID 07/29/21 Unknown History melatonin 5 mg tablet 5 mg PO QHS 07/29/21 Unknown History fluticasone propionate 220 1 inh inhalation BID 03/24/22 Unknown History mcg/actuation HFA aerosol inhaler (Flovent HFA) folic acid 1 mg tablet 1 mg PO DAILY 03/24/22 Unknown History paroxetine HCl 10 mg tablet 10 mg PO DAILY 03/24/22 Unknown History propranolol 160 mg capsule,24 160 mg PO DAILY 03/24/22 Unknown History hr,extended release carbidopa 25 mg-levodopa 100 mg 0.5 tab PO BID 04/30/22 Unknown History tablet levothyroxine 150 mcg tablet 150 mcg PO DAILY 04/30/22 Unknown History omeprazole 20 mg capsule,delayed 20 mg PO DAILY 04/30/22 Unknown History release potassium chloride 10 mEq 10 meq PO DAILY #90 caps 04/12/23 Unknown Rx capsule,extended release furosemide 40 mg tablet 40 mg PO DAILY #90 tabs 06/01/23 Unknown Rx Allergy/AdvReac Type Severity Reaction Status Date / Time bee venom protein (honey bee) Allergy Intermediate Swelling Verified 03/27/24 14:37 amoxicillin trihydrate (From Allergy Rash Verified 03/27/24 14:37 Augmentin) potassium clavulanate (From Allergy Rash Verified 03/27/24 14:37 Augmentin) codeine AdvReac Other Verified 03/27/24 14:37 propoxyphene HCl (From AdvReac Other Verified 03/27/24 14:37 Darvon) Family History no significant family his Surgical History (Updated 03/27/24 @ 15:[address] Matias Prater DO) History of nasal surgery History of total left hip replacement Hx of eye surgery Social History Smoking Status: Former smoker how long ago did patient quit smokin09/10/1979 alcohol intake: never substance use type: does not use caffeine: Yes Type: coffee Number of servings: 3 ROS ROS ED Constitutional Constitutional ED: Denies chills or fever(s) Eyes Eyes: Denies blurry vision or change in vision ENT ENT ED: Denies rhinorrhea or sore throat Cardiovascular Cardiovascular: Denies chest pain or palpitations Respiratory/Chest Respiratory/Chest: Denies cough or dyspnea Gastrointestinal Gastrointestinal: Denies nausea or vomiting Genitourinary Genitourinary ED: Denies dysuria or hematuria Musculoskeletal Musculoskeletal: Denies back pain or neck pain Integumentary Reports rash; Denies abscess Neurologic Neurologic: Denies headache(s) or weakness Allergic/Immunologic Allergic/Immunologic ED: Denies mouth swelling or tongue swelling EXAM Physical Exam Const Vital Signs: 03/27/24 14:35 03/27/24 15:33 Temperature 98.2 F Temperature Source Temporal Pulse Rate 92 67 Respiratory Rate 16 18 Blood Pressure 160/98 H 129/114 H Blood Pressure Mean 118 119 Pulse Ox 98 98 Oxygen Delivery Method Room Air Positive well nourished and well developed General Appearance ED: well developed and NAD HEENT Reports moist mucous membranes HEENT Narrative: Oropharynx is clear. Airway is patent. There is no pharyngeal edema noted. Neck supple and no JVD Resp normal respiratory effort and clear to auscultation bilaterally Cardio regular rate and regular rhythm Neuro oriented x3, CN's II-XII intact bilaterally and no sensory deficits noted Sensorium / Orientation: alert Motor Exam: strength 5/5 throughout Psych mental status grossly normal Skin Skin Narrative: There is some edema and erythema over the left external ear and left anterior neck/submandibular area. There is some mild induration. There is no warmth. There is no discharge or drainage noted. There are no pustules noted. There is no petechia noted. There is no involvement of the mucous membranes. MDM MDM MDM Narrative Medical decision making narrative: Patient was advised that this is most likely a local reaction to a hymenoptera sting. Patient was advised that different insects have different venoms and some can cause allergic reactions while others do not. Patient was instructed to use Benadryl as needed for any itching or swelling. Patient was instructed to follow-up with her primary care physician in 5 to 7 days. Patient understood and was agreeable with the plan. All questions were answered. Discharge Plan Triage Chief Complaint: Allergic Reaction ED Provider: Matias Prater Dx/Rx/DC Orders Clinical Impression: Local reaction to hymenoptera sting, Essential hypertension Instructions: ED Insect Sting, Local Reaction Prescriptions: No Action paroxetine HCl 10 mg tablet 10 mg PO DAILY Patient Comments: take 1 tablet by mouth once daily propranolol 160 mg capsule,extended release 24 hr 160 mg PO DAILY folic acid 1 mg tablet 1 mg PO DAILY fluticasone propionate [Flovent HFA] 220 mcg/actuation HFA aerosol inhaler 1 inh inhalation BID Patient Comments: inhale 1 puff by mouth and INTO THE LUNGS twice a day Rinse mouth after use omeprazole 20 mg capsule,delayed release(DR/EC) 20 mg PO DAILY Patient Comments: take 1 capsule by mouth once daily carbidopa-levodopa 25-100 mg tablet 0.5 tab PO BID latanoprost 1 DROP bottle 1 drp Each Eye DAILY loperamide [Imodium A-D] 2 MG capsule 2 mg PO Q2H PRN PRN (Reason: Diarrhea) sulfasalazine 500 MG tablet 1,000 mg PO DAILY prednisone 5 MG tablet 5 mg PO DAILY timolol 5 ML drops 5 ml OP BID montelukast 10 MG tablet 10 mg PO DAILY levothyroxine 150 mcg tablet 150 mcg PO DAILY brimonidine 0.2 % drops 1 drp RIGHT EYE BID Patient Comments: place 1 drop into right eye twice a day albuterol sulfate [ProAir HFA] 90 mcg/actuation Hfa Aerosol Inhaler 1 inh INHALATION Q6H PRN (Reason: ASTHMA) melatonin 5 mg Tablet 5 mg PO QHS potassium chloride 10 mEq capsule, extended release 10 meq PO DAILY Qty: 90 3RF furosemide 40 mg tablet 40 mg PO DAILY Qty: 90 3RF Primary Care Provider: Lauren Corrales Referrals: Lauren Corrales MD [Primary Care Provider] - 5-7 Days Print Language: Bulgarian Disposition Disposition: Home, Self Care
[2024-03-27 16:00] VITALS: BP 138/110; PULSE 65; RESP 18; O2SAT 99
[2024-03-27 16:17] VITALS: BP 138/110; PULSE 61; RESP 16; TEMP 36.6; O2SAT 99
== END 2024-03-27 16:19 | disposition home or self-care (01) ==
PROVIDERS: Emergency Provider Emergency Medicine; PCP Internal Medicine; Visit Provider Emergency Medicine
DX: T63.441A Toxic effect of venom of bees, accidental (unintentional), initial encounter (principal); G20.A1 Parkinson's disease without dyskinesia, without mention of fluctuations; I11.0 Hypertensive heart disease with heart failure; I50.32 Chronic diastolic (congestive) heart failure; Z79.899 Other long term (current) drug therapy; Z87.891 Personal history of nicotine dependence
CPT/HCPCS: 99283